=== PATIENT | female | born 1930 | race Caucasian/White ===

== ENCOUNTER 2016-08-10 11:06 | Day surgery (SDC) | payer MEDICARE ==
[2016-08-10] VITALS (8 sets, daily range): BP systolic 131–147; BP diastolic 53–78; PULSE 63–76; RESP 12–16; O2SAT 93–97
[~2016-08-10] VITALS: Ht 165.1 cm; Wt 58.7 kg
[~2016-08-10 11:06] MED LIST: ASPI-973 PO; AZU500 PO; Bupivacaine Liposome 1.3% 20 mL Inj INFILTRATE ONE; DILT-17 PO; ESTR42.52 VG; FLC50T PO; HYDR200T5 PO; LEVO100T6 PO; Lactated Ringer's 1,000 ML IV ONE; MULT-1018 PO; OMEG-38 PO; Vancomycin Inj 1,000 MG in IV Premix 1 EACH IV ONE
[2016-08-10] MEDS ORDERED: Ondansetron 2 mg/mL 2 mL Inj ONE (11:07)
[2016-08-10] MEDS ORDERED: Dexamethasone 4 mg/mL Inj ONE (11:07)
[2016-08-10] MEDS ORDERED: fentaNYL-PF 50 mCg/mL 2 mL Inj ONE (11:07)
[2016-08-10] MEDS ORDERED: Propofol 10,000 mCg/mL 20 mL Inj ONE (11:07)
[2016-08-10] MEDS ORDERED: CeFAZolin Inj 2 gm / 50mL D5W IV ONE (12:06)
[2016-08-10] MEDS ORDERED: Vancomycin 1,000mg/200 mL NS IV ONE (12:07)
[2016-08-10] MEDS ORDERED: Bupivacaine Liposome 1.3% 20 mL Inj ONE (13:18)
[2016-08-10] MEDS ORDERED: 0.9% Sodium Chloride 100 ML ONE (13:22)
[2016-08-10] MEDS ORDERED: Tranexamic Acid 100 mg/mL 10 mL Inj ONE (13:22)
--- NOTE | 2016-08-10 13:25 | PCM.HPANE ---
Patient Data Surgeon Admitting Provider: Attending Provider:Ra Cerda MD Primary Care Physician:Saw Tijerina MD Other Provider:[facility] Reason for Visit Left Knee Arthritis Ht/WT & BMI Height (Feet): 5 Height (Inches): 5 Weight (Kilograms): 58.7 Body Mass Index 21.00 Allergies Coded Allergies: latex (Verified Allergy, Unknown, rash, 08/06/16) Past Anesthesia History Anesthesia History: Denies:: Abnormal Airway, Anesthesia Reactions, Difficult Intubation, Fam Anesthesia Reaction Diabetes History Hx Diabetes?: No MRSA MRSA: No Medications Blood Thinner: Aspirin Hypertension Medication: No Home Meds Incl Beta Parris: No Reported Medications Sulfasalazine 500 Mg Tablet1,500 Mg PO BID 30 Days Ref 0 08/06/16 Multivitamin (Multi Vitamin Daily)1 Each Tablet1 Each PO DAILY 30 Days Ref 0 08/06/16 Levothyroxine 100 Mcg [id number] Mcg PO DAILY For Thyroid Replacement Ref 0 08/06/16 Hydroxychloroquine Sulfate 200 Mg [id number] Mg PO DAILY #30 TABLET Ref 0 08/06/16 Flecainide Acetate 50 Mg Hiotvl51 Mg PO Q12H 30 Days 08/06/16 Dundee-3/Dha/Epa/Fish Oil (Fish Oil 1,000 mg Softgel)1 Each Capsule1 Each PO DAILY 08/06/16 Diltiazem ER 120 Mg Cap.er.[id number] Mg PO DAILY Ref 0 08/06/16 Aspirin 81 Mg Qwirzm22 Mg PO DAILY Ref 0 08/06/16 Discontinued Reported Medications Estradiol (Estrace)42.5 Gm Cream.appl1 G VG UD PRN irritation #1 TUBE Ref 0 08/06/16 History HEENT History: Positive for:: Cataracts (bilateral) Hearing Problem Denies:: Abnormal Airway Difficult Intubation Dysphagia Glaucoma Sinus Problem TMJ Hx of Heart Problems?: Yes Cardiovascular History: Positive for:: Atrial Fibrillation (psvt, paroxysmal- no hx of ablation) Irregular Heartbeat Valvular Heart Disease (echo 2014- ef 65%) Denies:: AICD Edema Heart Murmur Hypertension Pacemaker Peripheral Vascular Rheumatic Fever Thrombophlebitis Hx of Respiratory Problem?: Yes Respiratory History: Positive for:: Dyspnea (can walk stairs without losing breath) Pneumonia (one time only) Denies:: Asthma COPD Emphysema Oxygen Administration Tuberculosis Use of C-PAP Machine Use of Inhalers / NEBS Hx Neurologic Problems?: No Neurological History: Denies:: CVA Dementia Dizziness Headaches Multiple Sclerosis Parkinson's Disease Seizures TIA Hx of GI Problems?: No Gastrointestinal History: Denies:: Cirrhosis Diverticulitis Gall Bladder Disease Gastroesphageal Reflux Gastrointestinal Bleeding Heartburn Hepatitis Hiatal Hernia Liver Disease Rectal Bleeding Hx of Problems?: No Genitourinary History: Denies:: Kidney Stones Urinary Tract Infection Other Pertinent History: cannot empty bladder- self caths two to three times daily, and also middle of night Female Hx: Positive for:: Problems with Breasts? (hx of benign lump) Denies:: Currently Skin History: Denies:: History Skin Disorders? Pressure Ulcers Hx Musculoskeletal Problems?: Yes Musculoskeletal History: Positive for:: Musculoskeletal Trauma (left knee current admission problem) Osteoarthritis Rheumatoid Arthritis Denies:: Back Injury Fibromyalgia Joint Replacement Hx of Psycho/Social Problems?: No Psycho Social History: Denies:: Anxiety Hx Depression Hx Surgeries?: Yes (tib fib fx, arthrocentesis, breast lump, hyst, jayson cataracts) Hx Any Other Health Problems?: Yes Other History: Positive for:: Thyroid Disease Denies:: Cancer History Blood Transfusions: Positive for:: Accept Blood Products? Denies:: Blood Transfusions Hx Diabetes: No Hx Alcohol Use: YesAlcoholic Drinks Per Day: one half to whole glass wine eveningHx Substance Use: NoHave You Smoked inLast 12 mo: No Stop/Bang S-Snoring: Do You Snore Loudly: No T-Tired: feel tired, fatigued: No O-Obsered: Observed not breath: No P-Blood Pressure: treated: No B- Body Mass Index > 35 kg/m2: No A- Age over 50: Yes N- Neck Large Circumference: No G- Gender Male: No DREAD Total Score: 1 DREAD Risk Assessment: Low Risk, <3 Yes Risk Assessment Category Category 1A: Patient has history of documented sleep apnea, and HAS NOT received any narcotic, sedative or anesthesia administration during this stay. Category 1B: Patient has history of documented sleep apnea, and HAS received any narcotic , sedative or anesthesia administration during this stay Category 2: Patient has SUSPECTED Obstructive Sleep Apnea, and HAS received any narcotic , sedative or anesthesia administration during this stay. Category 3: Patient has SUSPECTED Obstructive Sleep Apnea and HAS NOT received narcotic, sedative or anesthesia administration during this stay. Category 4: Outpatient in Procedural Areas with known sleep apnea or who screen positive for High Risk via the STOP/BANG questionnaire. Exam Exam Vital Signs Vital Signs Date Time Temp Pulse Resp B/P Pulse Ox O2 Delivery O2 Flow Rate FiO2 08/10/16 12:11 35.6 71 16 131/68 97 Room Air General Appearance: Alert HEENT/AIRWAY: MP 1 Lungs: Clear to Auscultation Heart: Exam Unremarkable Meds/Labs/Diagnostics Admission Meds Current Medications Lactated Ringer's 1,000 ml @ 120 mls/hr Q8H20M ONCE IV Last administered on 11:18; Start 08/10/16 at 05:00; Stop 08/10/16 at 13:19; Status DC Vancomycin/0.9 % Sod Chloride/ Premix (Vancomycin Inj/ IV Premix) 200 ml @ 133.333 mls/hr PREOP ONCE IV Last administered on 08/10/16 12:37; Start 08/10 at 06:00; Stop 08/10/16 at 07:29; Status DC Plan Impression Patient chart reviewed, patient interviewed and anesthestic plan with risks, benefits, and alternatives discussed, and informed consent obtained. NPO Status: 08/09/16 1800 ASA Physical Status: ASA2 Mod Systemic Disease Anesthetic Plan: GA Bene/Risks/Altern/Consents: Yes HP Complete Prior to Induction: Yes Víctor Desir MD Aug 10, 2016 13:25
[2016-08-10] MEDS: CeFAZolin Inj 2 GM in IV Premix 1 EACH IV ONE ×2 (13:35→13:39)
[2016-08-10] MEDS ORDERED: Lactated Ringer's 1,000 ML IV SCH (13:51)
[2016-08-10] MEDS ORDERED: Lactated Ringer's 500 ML IV PRN (13:51)
[2016-08-10] MEDS ORDERED: Dexamethasone 4 mg/mL Inj IVPUSH PRN (13:55)
[2016-08-10] MEDS ORDERED: Phenylephrine 10,000 mCg/mL Inj IVPUSH PRN (13:55)
[2016-08-10] MEDS ORDERED: Ondansetron 2 mg/mL 2 mL Inj IVPUSH PRN (13:55)
[2016-08-10] MEDS ORDERED: Labetalol 5 mg/mL 4 mL Inj IV PRN (13:55)
[2016-08-10] MEDS ORDERED: Atropine 0.4 mg/mL Inj IVPUSH PRN (13:55)
[2016-08-10] MEDS ORDERED: EPHEDrine Sulfate 50 mg/mL Inj IVPUSH PRN (13:55)
[2016-08-10] MEDS ORDERED: fentaNYL-PF 50 mCg/mL 2 mL Inj IVPUSH PRN (13:55)
[2016-08-10] MEDS ORDERED: HYDROmorphone 1 mg/mL Inj IVPUSH PRN (13:55)
[2016-08-10] MEDS ORDERED: MetoCLOpramide 5 mg/mL 2 mL Inj IVPUSH PRN (13:55)
[2016-08-10] MEDS ORDERED: Bupivacaine-MPF 0.25%/EPI 30 mL Inj INJ ONE (14:04)
[2016-08-10] MEDS ORDERED: Gentamicin 40 mg/mL 2 mL Inj IRRIGATION ONE (14:04)
--- NOTE | 2016-08-10 15:16 | PCM.ANEP1 ---
Post Anesthesia Phase 1 PACU Phase 1 Assessment Vital Signs Vital Signs Date Time Temp Pulse Resp B/P Pulse Ox O2 Delivery O2 Flow Rate FiO2 08/10/16 12:11 35.6 71 16 131/68 97 Room Air Anesthetic Administered: GA Level of Alertness: Awake, talking JEWELL's with Equal Strength: Yes Pain: No Nausea or Vomiting: Yes Airway Device: Endotrachial Tube Oxygen Delivery: Room Air Lungs: Clear to Auscultation Dermatome Level: Full Sensation Summary doing well bp 136/57 94% hr80 rr10 temp36.2 Víctor Desir MD Aug 10, 2016 15:16
--- NOTE | 2016-08-10 15:17 | PCM.ANEP2 ---
Post Anesthesia Evaluation ASA/CMS Post Anesthesia VS in Patient's Normal Range?: Yes Resp Stable; Airway Patent?: Yes CV Function & Hydration Stable: Yes Mental Status Recovered?: Yes Pain control Satisfactory?: Yes N/V Control Satisfactory?: Yes Víctor Desir MD Aug 10, 2016 15:16
--- NOTE | 2016-08-10 16:01 | DRSVH ---
PROCEDURE: X-RAY LEFT KNEE, ONE OR TWO VIEWS ([id number]) INDICATIONS: POST OP Left UNI LATERAL KNEE TECHNIQUE: 2 view(s) of the knee acquired. COMPARISON: [facility], CR, XR KNEE ARTHRITIC SERIES LT, 05/20/2016, 13:02. FINDINGS: Bones: Patient is status post knee joint lateral unicondylar arthroplasty. Hardware components are in expected positions. Post surgical changes compatible with ORIF of proximal tibia fracture are stab le compared to prior examination. Visualized bony structures are intact. Soft tissues: Overlying postoperative changes are noted. IMPRESSION: Expected postsurgical change for lateral compartment unicondylar arthroplasty. Dictated by: Lindsay Rojas MD, PhD on 08/10/2016 at 15:59 Approved by: Lindsay Rojas MD, PhD on 08/10/2016 at 16:00
--- NOTE | 2016-08-11 02:02 | OP ---
[address] [address] OPERATIVE REPORT PATIENT: MARY LOU MONTANEZ : 1930 MR#: [id number] ADMIT: 08/10/2016 JOB ID: [id number] DATE OF SURGERY: 08/10/2016 PREOPERATIVE DIAGNOSIS(ES): Severe lateral compartment osteoarthritis. POSTOPERATIVE DIAGNOSIS(ES): Severe lateral compartment osteoarthritis. PROCEDURE: Lateral unicompartmental knee arthroplasty. SURGEON: Ra Cerda MD STAFFING ANALYST: Wendy Holland PA-C COMPLICATIONS: None. INDICATION: This woman has had progressive left knee lateral compartment disability. 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 She elects to proceed with a lateral compartment arthroplasty, understanding and accepting the potential for risks and complications, which include but is not limited to, infection, thromboembolic, neurovascular events, as well as potential for progressive arthritis in resurfaced compartments and implant failure. DESCRIPTION OF PROCEDURE: The patient was prepped and draped in the usual sterile fashion. An anterolateral arthrotomy was performed. Dissection carried down. Patellar osteophyte removed. Alignment apparatus was assembled. The distal femoral and proximal tibial cut were made. The tibial cut was completed with a sagittal saw, cutting a 15.5 mm lag gout. The femur was sized to a D chamfer cutting block, fixed in appropriate position, rotation. Drill holes and chamfer cuts were made. The tibia was provisionally sized to a #2. Trial reduction was performed and a 9 mm polyethylene was chosen which produced excellent alignment, soft tissue tension and tracking. All meniscal tissue and osteophytes were carefully removed from the knee. The knee was irrigated with copious quantities of sterile irrigant. Pressurized cementation ensued. Excess cement removed during the curing process. Final construct assembled. The final polyethylene was snapped securely into place. Wounds irrigated with further sterile irrigant. A deep Hemovac drain was left. Deep tissues were closed with #2 Quill, followed by a 2-0 Vicryl, 3-0, and a 4-0 intracuticular stitch. Steri-Strips applied. Sterile dressing was applied. The patient was returned to the recovery room in stable condition. She tolerated the procedure well. There were no complications.
== END 2016-08-10 23:59 | disposition home or self-care (01) ==
LOC: SAS 11:06
PROVIDERS: ATTEND Orthopaedic Surgery
DX: M17.12 Unilateral primary osteoarthritis, left knee (principal); I38 Endocarditis, valve unspecified; E03.9 Hypothyroidism, unspecified; M06.9 Rheumatoid arthritis, unspecified; I48.91 Unspecified atrial fibrillation; Z79.82 Long term (current) use of aspirin; Z87.440 Personal history of urinary (tract) infections
CPT/HCPCS: 27446; 73560; C1713; C1776; J0690; J1100; J1580; J1885; J2405; J3010; J3370; J7120